=== PATIENT | female | born 1975 | race Two or more races ===

== ENCOUNTER 2016-08-20 10:58 | Emergency (ER) | payer OTHER ==
[~2016-08-20] VITALS: Ht 165.1 cm; Wt 74.6 kg
[2016-08-20] MEDS ORDERED: ZOFRAN ODT4 MG PO (13:36)
[2016-08-20 14:13] VITALS: BP 132/99
== END 2016-08-20 14:13 | disposition home or self-care (01) ==
LOC: EXP 10:58 → EME 10:58 → EXP 14:13
DX: J11.1 Influenza due to unidentified influenza virus with other respiratory manifestations (principal); R11.2 Nausea with vomiting, unspecified
CPT/HCPCS: 71020; 99281; 99284